=== PATIENT | male | born 1985 | race Caucasian/White ===

== ENCOUNTER 2016-05-30 06:52 | Emergency (ER) | payer OTHER ==
[~2016-05-30] VITALS: Ht 162.6 cm; Wt 59.0 kg
[~2016-05-30 06:52] MED LIST: Z.0.NO CURRENT MEDS
[2016-05-30 06:53] VITALS: BP 126/75; PULSE 66; RESP 16; TEMP 97.7; O2SAT 98
--- NOTE | 2016-05-30 07:19 | PD ---
HPI Chief Complaint: Injury Time Seen by Provider: 07:19 Travel History International Travel<30 days: No Contact w/Intl Traveler<30days: No Traveled to known affect area: No History of Present Illness HPI 31-year-old male presents to the emergency department status post fall yesterday while roller skating. Patient injured his right lateral hand. Patient denies any other injury. The patient Did not hit his head or neck. Patient has pain and swelling over the right lateral hand and has difficulty making a fist secondary to pain. Pain is described as 6/10. He denies numbness or tingling. He has no other injury. He has no known drug allergies. [facility] Social History Alcohol Use: Yes Tobacco Use: No Substance Use: No Allergies-Medications (Allergen,Severity, Reaction): Coded Allergies: No Known Allergies (Verified , 05/30/16) Reported Meds & Prescriptions Reported Meds & Active Scripts Active No Active Prescriptions or Reported Medications Review of Systems Except as stated in HPI: all other systems reviewed are Neg General / Constitutional: No: Fever Eyes: No: Visual changes HENT: No: Headaches Cardiovascular: No: Chest Pain or Discomfort Respiratory: No: Shortness of Breath Gastrointestinal: No: Abdominal Pain Genitourinary: No: Dysuria Musculoskeletal: No: Pain Skin: No Rash Neurologic: No: Weakness Psychiatric: No: Depression Endocrine: No: Polydipsia Hematologic/Lymphatic: No: Easy Bruising Physical Exam Narrative GENERAL: Patient appears in no acute distress. SKIN: Warm and dry. Normal color. Normal turgor. No abrasions. Patient has ecchymosis and swelling over the right lateral dorsal hand. HEAD: Atraumatic. Normocephalic. EYES: Pupils equal and round. No scleral icterus. No injection or drainage. ENT: No nasal bleeding or discharge. Mucous membranes pink and moist. Pharynx is normal. NECK: Trachea midline. Supple and nontender. CARDIOVASCULAR: Regular rate and rhythm. RESPIRATORY: No accessory muscle use. Clear to auscultation. Breath sounds equal bilaterally. MUSCULOSKELETAL: Extremities without clubbing, cyanosis, or edema. Patient has swelling and decreased range of motion in the right fourth and fifth digits consistent with possible fracture of the fourth and fifth metatarsal. Right wrist has normal range of motion. Neurovascular exam is normal distal to the injury site. Patient is able to move all fingers normally on the right hand, although somewhat limited secondary to discomfort. Right forearm, elbow, and shoulder are within normal limits. NEUROLOGICAL: Awake and alert. No obvious cranial nerve deficits. Motor grossly within normal limits. Five out of 5 muscle strength in the arms and legs. Normal speech. PSYCHIATRIC: Appropriate mood and affect; insight and judgment normal. Data Data Last Documented VS Vital Signs Date Time Temp Pulse Resp B/P Pulse Ox O2 Delivery O2 Flow Rate FiO2 05/30/16 06:53 97.7 66 16 126/75 98 Room Air Orders Hand, Complete ([id number]) (05/30/16 07:19) Ice/Cold Pack (05/30/16 07:19) Splinting (05/30/16 ) MDM Medical Decision Making Medical Screen Exam Complete: Yes Emergency Medical Condition: Yes Differential Diagnosis Fall. Right hand contusion. Right hand fracture. Narrative Course Patient is medically stable at time of exam. X-ray of the right hand is obtained. Ice pack is placed over the right hand. X-ray shows a distal fracture of the fifth carpal, minimally displaced. Patient is placed in a long ulnar gutter splint at 45. Patient is to ice the area, and take Tylenol for pain. Patient is given a note for work with restrictions. Patient follow with Dr. Max, the hand surgeon. In one to 2 weeks. Diagnosis Primary Impression: Fx metacarpal neck-closed Qualified Code: S62.336A - Closed displaced fracture of neck of fifth metacarpal bone of right hand, initial encounter Referrals: Eze Max III, MD Patient Instructions: General Instructions Departure Forms: Work Release Enter return to work date: May 30, 2016 Special Instructions: Patient has to wear splint until cleared by hand surgeon. Limited use right hand. Additional Instructions: X-ray shows a distal fracture of the fifth carpal, minimally displaced. Patient is placed in a long ulnar gutter splint at 45. Patient is to ice the area, and take Tylenol for pain. Patient is given a note for work with restrictions. Patient follow with Dr. Max, the hand surgeon. In one to 2 weeks. Scripts No Active Prescriptions or Reported Meds Disposition: 01 DISCHARGE HOME Condition: Stable Angus Alston May 30, 2016 07:19
--- NOTE | 2016-05-30 07:48 | RADRPT ---
EXAM DATE/TIME: 05/30/2016 07:34 [facility] COMPARISON: No previous studies available for comparison. INDICATIONS : Patient fell last night skateboarding. Bruising on medial side of fifth digit. MEDICAL HISTORY : None. SURGICAL HISTORY : None. ENCOUNTER: Initial ACUITY: 1 day PAIN SCORE: 0/10 LOCATION: Right Hand FINDINGS: Three view examination of the right hand demonstrates soft tissue swelling and mildly displaced fract ure of the distal fifth metacarpal. Slight dorsal apex angulation. No other fractures.. Bony mineral ization is normal. CONCLUSION: 1. Distal fifth metacarpal fracture, mildly displaced Tad Qureshi MD on May 30, 2016 at 7:45 Board Certified Radiologist. This report was verified electronically.
== END 2016-05-30 08:34 | disposition home or self-care (01) ==
LOC: NEPB 06:52
DX: S62.336A Displaced fracture of neck of fifth metacarpal bone, right hand, initial encounter for closed fracture (principal); V00.128A Other non-in-line roller-skating accident, initial encounter; Y93.51 Activity, roller skating (inline) and skateboarding
CPT/HCPCS: 29125; 73130